=== PATIENT | male | born 1940 | race Caucasian/White ===

== ENCOUNTER 2025-09-10 15:09 | Inpatient (IN) | payer MEDICARE, OTHER ==
[~2025-09-10] VITALS: Ht 180.3 cm; Wt 72.7 kg
[~2025-09-10 15:09] MED LIST: ATOR20TA PO; DIVA125C20 PO; DULO30CA62 PO; HALO5TAB23 PO; LEVO750T68 PO; PANT-31 PO; TICA90TA PO; TRAZ-257 PO
[2025-09-10 15:41] LABS: COVID AG,FIA SOURCE NPH
[2025-09-10 15:57] LABS: PLATELET COUNT (AUTO) 159 K/uL (150-450); RED BLOOD CELL COUNT(AUTO) 4.36 MIL/uL (4.50-5.90); RED CELL DISTRIBUTION WIDTH 15.6 % (11.5-14.5); WHITE BLOOD COUNT (AUTO) 8.7 K/uL (4.5-11.0)
[2025-09-10 16:03] LABS: CALCIUM, TOTAL 9.2 mg/dL (8.8-10.5); CREATININE 1.00 mg/dL (0.60-1.30); GLOMERULAR FILTR. RATE CALC > 60 mL/min (>60); GLUCOSE,RANDOM 130 mg/dL (70-110); SODIUM SERUM 154 mmol/L (136-145); UREA NITROGEN, BLOOD 26 mg/dL (7-18)
[2025-09-10 16:04] LABS: SARS-COV2 (COVID) ANTIGEN,FIA Negative (Negative)
[2025-09-10 16:08] LABS: ASPARTATE AMINOTRANSFERASE 19 U/L (15-37); TOTAL PROTEIN, SERUM 6.4 g/dL (6.4-8.2); VALPROIC ACID 31 mcg/mL (50-100)
[2025-09-10 16:11] LABS: ALCOHOL, BLOOD (SERUM) < 3 mg/dL (0-10)
[2025-09-10] MEDS: SODIUM CHLORIDE 0.9% 1,000 ML IV ONE (17:51)
[2025-09-10] MEDS: OLANZapine 5 MG RAPDIS TABLET PO ONE (20:50)
[2025-09-10] MEDS ORDERED: ONDANSETRON HCL 4 MG/2 ML VIAL IVP PRN (21:45)
[2025-09-10] MEDS ORDERED: ACETAMINOPHEN 325 MG TABLET PO PRN (21:45)
[2025-09-10] MEDS: DEXTROSE 5%-WATER 1,000 ML IV SCH (22:15)
[2025-09-10] MEDS: POTASSIUM CHLORIDE 10% 40 MEQ/30 ML LIQUID UDCUP PO ONE (22:23)
[2025-09-10 22:59] VITALS: BP 125/72; PULSE 80; RESP 18; TEMP 97.7; O2SAT 92
[2025-09-11] MEDS: HEPARIN SODIUM,PORCINE 5,000 UNITS/ML VIAL SQ SCH
[2025-09-11] MEDS ORDERED: MAGN-169 PO (02:32)
[2025-09-11] MEDS ORDERED: HYDR-4062 PO (02:32)
[2025-09-11] MEDS ORDERED: PANT40TA54 PO (02:32)
[2025-09-11 05:57] VITALS: BP 139/78; PULSE 75; RESP 18; TEMP 97.7; O2SAT 93
[2025-09-11 08:00] VITALS: BP 128/68; PULSE 60; RESP 19; TEMP 97.9; O2SAT 99
[2025-09-11 08:22] LABS: PLATELET COUNT (AUTO) 135 K/uL (150-450); RED BLOOD CELL COUNT(AUTO) 4.01 MIL/uL (4.50-5.90); RED CELL DISTRIBUTION WIDTH 16.3 % (11.5-14.5); WHITE BLOOD COUNT (AUTO) 8.2 K/uL (4.5-11.0)
[2025-09-11 08:36] LABS: CALCIUM, TOTAL 8.8 mg/dL (8.8-10.5); CREATININE 1.01 mg/dL (0.60-1.30); GLOMERULAR FILTR. RATE CALC > 60 mL/min (>60); GLUCOSE,RANDOM 106 mg/dL (70-110); SODIUM SERUM 155 mmol/L (136-145); UREA NITROGEN, BLOOD 19 mg/dL (7-18)
[2025-09-11] MEDS: DULoxetine HCL 30 MG CAPSULE PO SCH (09:29)
[2025-09-11] MEDS: DIVALPROEX SODIUM 125 MG DR CAPSULE PO SCH (09:31)
[2025-09-11 09:39] LABS: RBC MORPHOLOGY COMMENT ABNORMAL RBC MORPH
[2025-09-11] MEDS: PANTOPRAZOLE SODIUM 40 MG DR TABLET PO SCH (09:39)
[2025-09-11] MEDS: ATORVASTATIN CALCIUM 20 MG TABLET PO SCH (09:39)
[2025-09-11] MEDS: TICAGRELOR 90 MG TABLET PO SCH (09:40)
[2025-09-11] MEDS: DOCUSATE SODIUM 100 MG CAPSULE PO SCH (09:40)
[2025-09-11 13:21] LABS: GLUCOMETER DEV NAME(LOC) 4E.2; GLUCOSE,POINT OF CARE 82 MG/DL (70-110)
[2025-09-11] MEDS ORDERED: CefTRIAXone SODIUM 2 GM in DEXTROSE 5%-WATER 50 ML IV SCH (15:00)
[2025-09-11] MEDS: *CLINICAL-LEVOFLOXACIN IVPB DOSING CLINICAL ONE (15:14)
[2025-09-11 16:00] VITALS: BP 114/66; PULSE 73; RESP 19; TEMP 98.6; O2SAT 100
[2025-09-11] MEDS: LEVOFLOXACIN 750 MG/D5% WATER 150 ML IV SCH (16:30)
[2025-09-11 19:35] VITALS: BP 118/65; PULSE 82; RESP 18; TEMP 98.6; O2SAT 100
[2025-09-12 03:30] VITALS: BP 126/57; PULSE 77; RESP 18; TEMP 98.1; O2SAT 100
[2025-09-12 06:56] LABS: PLATELET COUNT (AUTO) 118 K/uL (150-450); RED BLOOD CELL COUNT(AUTO) 3.72 MIL/uL (4.50-5.90); RED CELL DISTRIBUTION WIDTH 16.1 % (11.5-14.5); WHITE BLOOD COUNT (AUTO) 6.0 K/uL (4.5-11.0)
[2025-09-12 06:57] LABS: CALCIUM, TOTAL 8.4 mg/dL (8.8-10.5); CREATININE 1.03 mg/dL (0.60-1.30); GLOMERULAR FILTR. RATE CALC > 60 mL/min (>60); GLUCOSE,RANDOM 89 mg/dL (70-110); SODIUM SERUM 149 mmol/L (136-145); UREA NITROGEN, BLOOD 19 mg/dL (7-18)
[2025-09-12 08:09] VITALS: BP 125/109; PULSE 102; RESP 20; TEMP 98.2; O2SAT 95
[2025-09-12 08:30] VITALS: BP 139/89; PULSE 79; RESP 19; TEMP 98.2; O2SAT 96
[2025-09-12] MEDS ORDERED: LORazepam 2 MG/ML VIAL IVP PRN (15:15)
[2025-09-12 20:29] VITALS: BP 114/72; PULSE 69; RESP 18; TEMP 97.5; O2SAT 100
[2025-09-13 06:00] VITALS: BP 136/96; PULSE 83; RESP 20; TEMP 97.7; O2SAT 96
[2025-09-13 08:25] VITALS: BP 119/84; PULSE 69; RESP 20; TEMP 97.8; O2SAT 96
[2025-09-13] MEDS ORDERED: LORazepam 2 MG/ML VIAL IM PRN (16:00)
[2025-09-13 16:28] VITALS: BP 116/86; PULSE 82; RESP 18; TEMP 98.6; O2SAT 96
[2025-09-13 19:32] VITALS: BP 137/87; PULSE 75; RESP 18; TEMP 98.2; O2SAT 96
[2025-09-14 05:15] VITALS: BP 142/79; PULSE 70; RESP 18; TEMP 97.3; O2SAT 100
[2025-09-14 08:16] VITALS: BP 153/90; PULSE 100; RESP 18; TEMP 97.8; O2SAT 97
[2025-09-14] MEDS ORDERED: DOCU-385 PO (13:13)
[2025-09-14] MEDS ORDERED: HEPA50009 SQ (13:14)
[2025-09-14] MEDS ORDERED: ACET-2247 PO (13:19)
[2025-09-14] MEDS ORDERED: LORA2TAB18 PO (13:20)
[2025-09-14] MEDS ORDERED: HALO2 PO (13:21)
[2025-09-14 13:45] VITALS: BP 113/93; PULSE 93; RESP 18; TEMP 98.1; O2SAT 98
== END 2025-09-14 16:00 | DRG 70 ==
LOC: EMS 15:09 → EDH 21:35 → 4E 22:44
PROVIDERS: ADMIT Internal Medicine; ATTEND Internal Medicine
DX: G93.41 Metabolic encephalopathy (principal); J69.0 Pneumonitis due to inhalation of food and vomit; R53.2 Functional quadriplegia; F02.82 Dementia in other diseases classified elsewhere, unspecified severity, with psychotic disturbance; F23 Brief psychotic disorder; E11.9 Type 2 diabetes mellitus without complications; E87.0 Hyperosmolality and hypernatremia; Z20.822 Contact with and (suspected) exposure to COVID-19; E86.0 Dehydration; G30.9 Alzheimer's disease, unspecified; R33.9 Retention of urine, unspecified; Z88.0 Allergy status to penicillin; Z88.1 Allergy status to other antibiotic agents; Z79.899 Other long term (current) drug therapy
CPT/HCPCS: 71045; 80048; 80053; 80164; 82962; 83735; 85025; 87081; 92526; 92610; 93005; 96360; 99285; G0378; G0480; J1644; J1956; J7060; 36415-L1; 36415-TC